=== PATIENT | male | born 1980 | race Caucasian/White ===

== ENCOUNTER 2021-10-19 22:14 | Emergency (ER) | payer MEDICAID, SELFPAY ==
[2021-10-19] VITALS (20 sets, daily range): BP systolic 121–143; BP diastolic 59–85; PULSE 108–132; RESP 7–26; TEMP 36.7; O2SAT 88–95
--- NOTE | 2021-10-19 23:02 | W.ED.GENAD ---
Discharge Plan Disposition Patient Disposition: STILL A PATIENT Condition: Serious Discharge Details Clinical Impression: Opioid overdose Primary Care Provider: Unknown,Unknown ED Provider: Vince De Leon Home Meds and New Rx's Prescriptions: Continued methadone [Dolophine] 10 MG tablet 80 mg PO DAILY Discharge Instructions Instructions: Opioid Use Disorder (ED), Naloxone (Into the nose) Additional Instructions: Please stop using opioids including fentanyl. Taking methadone only as prescribed. Please contact your primary care physician to arrange follow-up. Return to the ER immediately for any worsening or new concerning symptoms. Referrals: [facility] [Outside] Medical Decision Making 41-year-old male with opioid use disorder, on methadone, here after accidental overdose snorting fentanyl. Patient received naloxone by EMS. Plan to observe for 2 hours. I will contact [facility] for consultation if available. HPI General Mode of arrival: EMS. Date/Time Provider Initiated Documentation: 10/19/21 22:56. Limitations to Documentation: no limitations. Information obtained by: patient and EMS. HPI Narrative: 41-year-old male with opioid use disorder, on methadone, presents after accidental overdose on fentanyl. Patient notes he snorted fentanyl tonight and lost consciousness. His girlfriend called EMS. EMS arrived to find patient with agonal respirations unresponsive. EMS initiated rescue breathing and provided naloxone intranasal 4 mg. Patient responded shortly thereafter and has maintained mentation in route. Patient is tearful and regrets his decision tonight. Patient denies complaint at this time. Overdose was severe. He has no associated shortness of breath or chest pain. Related Data Home Medications Medication Instructions Recorded Confirmed methadone 10 mg tablet (Dolophine) 80 mg PO DAILY 08/17/14 12/17/16 Allergies Allergy/AdvReac Type Severity Reaction Status Date / Time No Known Allergies Allergy Unverified 09/29/14 09:44 General Stated Complaint: OD/Poison NENA: 2 Review of Systems Constitutional Constitutional: Denies fever(s) Cardiovascular Cardiovascular: Reports as per HPI PFS All Active Problems (Updated 10/19/21 @ 23:24 by Vince De Leon MD) Opioid overdose (Acute) Social History Smoking/Tobacco Use Status: Current every day Smoking risk assessment performed?: Yes Alcohol Intake: former Drug use: Current Sobriety Do you feel safe at home: Yes Do you feel safe in your relationship?: Yes Exam Const General: cooperative HENMT Mouth: moist mucous membranes Eyes EOM: EOM intact bilaterally Resp Auscultation: clear to auscultation bilaterally, no rales, no rhonchi and no wheezes Cardio Rate: regular rate and not tachycardic Rhythm: regular rhythm GI Palpation: soft, not firm, no guarding, no masses, not rigid and nontender Skin General skin exam: no rashes or lesions noted Neuro General: patient alert, patient awake, patient oriented x3 and tone normal Extrem General: no edema Psych Appearance: grossly normal Mental Status: mental status grossly normal Speech and Movement: speech and movement normal Mood: anxious mood Affect: anxious affect Course Vital Signs Vital signs: Vital Signs Temperature 36.7 C 10/19/21 22:17 Pulse 124 H 10/19/21 22:17 Respiratory Rate 18 10/19/21 22:17 Blood Pressure 143/81 H 10/19/21 22:17 Pulse Oximetry 92 10/19/21 22:17 Temperature 36.7 C 10/19/21 22:17 Pulse 126 H 10/19/21 22:46 Pulse 124 H 10/19/21 22:46 Respiratory Rate 8 L 10/19/21 22:46 Blood Pressure 124/59 L 10/19/21 22:46 Blood Pressure Mean 74 10/19/21 22:46 Blood Pressure Position Sitting 10/19/21 22:17 Pulse Oximetry 94 10/19/21 22:46 Oxygen Delivery Method Room Air 10/19/21 22:17 Oxygen Flow Rate 0 10/19/21 22:17
[2021-10-20] VITALS: O2SAT 93
--- NOTE | 2021-10-20 00:06 | W.EDPROG ---
Date of service: 10/20/21 Time of Service: 12:06 Medical Decision Making 2300 -- Please see Dr. De Leon's note for initial presentation, exam and plan. Case endorsed to continue to monitor until midnight. 41-year-old male on long-term methadone for previous history of opiate abuse presented as a fentanyl overdose. He was only given 1 dose of intranasal Narcan per EMS. Since arrival to the ED 45 minutes ago, he has been awake and alert, breathing comfortably. He appears quite anxious and tearful, heart rate 120s. Remainder vitals within normal limits. Oxygen saturation mid to high 90s on room air. Patient denies any acute complaints. 0015 --patient has not required any additional Narcan and feels comfortable going home. Heart rate improved to low 100s. Patient has remained hemodynamically stable. He appears more comfortable and relaxed. [facility] paged but no response. He was given to the recovery follow-up information. He was given Narcan to go. Advised to follow up with the primary care doctor for re-evaluation. Usual and customary return precautions given prior to discharge. Medical Records Medical records reviewed: Yes I reviewed the patient's medical records. Sign Out Sign Out Data: Sign Out Comment: Reassessed patient at midnight for disposition. [facility] consulted Last updated by Vince De Leon MD at 10/19/21 23:27 Discharge Plan Disposition Patient Disposition: HOME Condition: Improving Discharge Details Clinical Impression: Opioid overdose Primary Care Provider: None,None ED Provider: Krysta Ayala Home Meds and New Rx's Prescriptions: Continued methadone [Dolophine] 10 MG tablet 80 mg PO DAILY Discharge Instructions Instructions: Naloxone (Into the nose), Opioid Use Disorder (ED) Additional Instructions: Please stop using opioids including fentanyl. Use the Narcan you were provided as needed and directed in cases of opiate overdose. Taking methadone only as prescribed. Please contact your primary care physician to arrange follow-up. Return to the ER immediately for any worsening or new concerning symptoms. Referrals: [facility] [Outside] Discharge Data Discharge Physician: Krysta Ayala
== END 2021-10-20 00:23 | disposition home or self-care (01) ==
PROVIDERS: Emergency Provider Physician Assistant
DX: T40.411A Poisoning by fentanyl or fentanyl analogs, accidental (unintentional), initial encounter (principal); R40.4 Transient alteration of awareness
CPT/HCPCS: 99283